=== PATIENT | female | born 1975 | race Caucasian/White ===

== ENCOUNTER → 2023-09-07 14:20 | Outpatient (REF) | payer BC, SELFPAY ==
[2023-09-17 04:08] LABS: HPV Genotype 16 Not Detected; HPV Genotype 18 Not Detected; HPV, High Risk Not Detected; HPV, High Risk Source Cervical
== END ==
LOC: CPAP 14:20
PROVIDERS: ATTENDING PHYSICIAN Obstetrics & Gynecology Gynecology
DX: Z01.419 Encounter for gynecological examination (general) (routine) without abnormal findings (principal)
CPT/HCPCS: 87624; G0123

== ENCOUNTER → 2023-10-03 09:50 | Outpatient (REF) | payer BC, SELFPAY | LOC: MRI 3T 09:50 | PROVIDERS: ATTENDING PHYSICIAN Orthopaedic Surgery Hand Surgery | DX: M77.12 Lateral epicondylitis, left elbow (principal) | CPT/HCPCS: 73221 ==

== ENCOUNTER → 2023-12-29 20:09 | Outpatient (REF) | payer BC, SELFPAY | LOC: MRI 3T 20:09 | PROVIDERS: ATTENDING PHYSICIAN Physical Medicine & Rehabilitation; FAMILY PHYSICIAN Family Medicine | DX: M77.12 Lateral epicondylitis, left elbow (principal) | CPT/HCPCS: 73221 ==

== ENCOUNTER → 2024-01-03 14:41 | Outpatient (REF) | payer BC, SELFPAY | LOC: MRI 3T 14:41 | PROVIDERS: ATTENDING PHYSICIAN Internal Medicine Hematology & Oncology; FAMILY PHYSICIAN Internal Medicine Cardiovascular Disease | DX: C50.912 Malignant neoplasm of unspecified site of left female breast (principal) | CPT/HCPCS: 77049; A9585 ==

== ENCOUNTER 2024-01-19 16:04 | Outpatient (RCR) | payer BC, SELFPAY | END 2024-01-19 23:59 | disposition home or self-care (01) | LOC: ROT 16:04 | PROVIDERS: ATTENDING PHYSICIAN Physical Medicine & Rehabilitation; FAMILY PHYSICIAN Family Medicine | DX: M77.12 Lateral epicondylitis, left elbow (principal); Z73.6 Limitation of activities due to disability; Z85.3 Personal history of malignant neoplasm of breast | CPT/HCPCS: 97010; 97035; 97110; 97140; 97166; 97535 ==

== ENCOUNTER → 2024-03-24 13:15 | Outpatient (REF) | payer BC, SELFPAY | LOC: RAD 13:15 | PROVIDERS: ATTENDING PHYSICIAN Student in an Organized Health Care Education/Training Program; FAMILY PHYSICIAN Family Medicine | DX: M54.2 Cervicalgia (principal) | CPT/HCPCS: 72052 ==

== ENCOUNTER → 2024-03-28 08:00 | Outpatient (REF) | payer BC, SELFPAY | LOC: RAD 08:00 | PROVIDERS: ATTENDING PHYSICIAN Student in an Organized Health Care Education/Training Program | DX: M54.2 Cervicalgia (principal) | CPT/HCPCS: 93880 ==

== ENCOUNTER → 2024-05-13 07:46 | Outpatient (REF) | payer BC, SELFPAY | LOC: MRI 3T 07:46 | PROVIDERS: ATTENDING PHYSICIAN Physician Assistant Surgical; FAMILY PHYSICIAN Family Medicine | DX: M54.12 Radiculopathy, cervical region (principal); M54.2 Cervicalgia; M50.10 Cervical disc disorder with radiculopathy, unspecified cervical region | CPT/HCPCS: 72141 ==

== ENCOUNTER → 2024-08-04 08:34 | Outpatient (REF) | payer BC, SELFPAY ==
[2024-08-04 10:06] LABS: Hematocrit 35.8 % (37.0-47.0); Hemoglobin 11.9 g/dL (12.0-16.0); Mean Corp Hgb Conc. 33.2 g/dL (33.0-37.0); Mean Corpuscular Hgb 31.8 pg (27.0-31.0); Mean Corpuscular Volume 95.7 fL (81.0-99.0); Mean Platelet Volume 10.7 fL (7.4-10.4); Platelet Count 233 10^3/uL (130-400); Red Blood Cell Count 3.74 10^6/uL (4.20-5.40); Red Cell Dist. Width 12.5 % (11.5-14.5); White Blood Cell Count 4.7 10^3/uL (4.8-10.8)
[2024-08-04 11:24] LABS: ALT (SGPT) 27 U/L (0-35); AST (SGOT) 41 U/L (14-36); Albumin 4.9 g/dl (3.5-5.0); Alkaline Phosphatase 61 U/L (38-126); Blood Urea Nitrogen 15 mg/dl (7-17); Carbon Dioxide 28 mmol/L (22-30); Chloride 99 mmol/L (98-107); Glucose 93 mg/dl (70-99); Potassium 4.2 mmol/L (3.5-5.1); Sodium 136 mmol/L (135-145); Total Bilirubin 0.3 mg/dl (0.2-1.3); Total Cholesterol 225 mg/dl (50-199); Total Protein 7.3 g/dl (6.3-8.2); Triglyceride 67 mg/dl (10-149); Very Low Density Lipoprotein 13 mg/dl (0-30); eGFR > 60.00
[2024-08-04 11:48] LABS: HDL Cholesterol 159 mg/dl; LDL Cholesterol, Calculated 53 mg/dl
== END ==
LOC: REG 08:34
PROVIDERS: ATTENDING PHYSICIAN Family Medicine
DX: E03.9 Hypothyroidism, unspecified (principal); Z00.01 Encounter for general adult medical examination with abnormal findings
CPT/HCPCS: 36415; 80053; 80061; 84443; 85027

== ENCOUNTER → 2024-08-10 13:23 | Outpatient (REF) | payer BC, SELFPAY ==
[2024-08-10 15:21] LABS: C-Reactive Protein < 5.00 mg/L (0.0-10.00)
[2024-08-10 15:26] LABS: Erythrocyte Sed Rate 10 mm/hour (0-20)
[2024-08-11 13:03] LABS: Rheumatoid Agglutinin Less Than 10 IU (<10 IU)
[2024-08-13 09:52] LABS: ANA, IgG Reflex to HEp-2 None Detected (None Detected)
== END ==
LOC: REG 13:23
PROVIDERS: ATTENDING PHYSICIAN Family Medicine; FAMILY PHYSICIAN Internal Medicine Cardiovascular Disease
DX: Z85.3 Personal history of malignant neoplasm of breast (principal); Z00.00 Encounter for general adult medical examination without abnormal findings; M47.812 Spondylosis without myelopathy or radiculopathy, cervical region
CPT/HCPCS: 36415; 85652; 86038; 86140; 86430

== ENCOUNTER → 2024-12-04 15:53 | Outpatient (REF) | payer BC, SELFPAY | LOC: RAD 15:53 | PROVIDERS: ATTENDING PHYSICIAN Surgery Plastic and Reconstructive Surgery; FAMILY PHYSICIAN Family Medicine | DX: Z90.13 Acquired absence of bilateral breasts and nipples (principal) | CPT/HCPCS: 74174; Q9967 ==

== ENCOUNTER → 2024-12-14 09:39 | Outpatient (REF) | payer BC, SELFPAY | LOC: WDC 09:39 | PROVIDERS: ATTENDING PHYSICIAN Surgery; FAMILY PHYSICIAN Family Medicine | DX: N63.0 Unspecified lump in unspecified breast (principal); Z85.3 Personal history of malignant neoplasm of breast; C50.412 Malignant neoplasm of upper-outer quadrant of left female breast | CPT/HCPCS: 76642 ==

== ENCOUNTER → 2024-12-15 14:52 | Outpatient (REF) | payer BC, SELFPAY | LOC: RCS 14:52 | PROVIDERS: ATTENDING PHYSICIAN Internal Medicine Cardiovascular Disease; FAMILY PHYSICIAN Family Medicine | DX: R00.2 Palpitations (principal); R94.31 Abnormal electrocardiogram [ECG] [EKG]; R07.89 Other chest pain | CPT/HCPCS: 93017 ==

== ENCOUNTER → 2024-12-21 11:21 | Outpatient (REF) | payer BC, SELFPAY | LOC: HWRCS 11:21 | PROVIDERS: ATTENDING PHYSICIAN Internal Medicine Cardiovascular Disease; FAMILY PHYSICIAN Family Medicine | DX: R00.2 Palpitations (principal); R94.31 Abnormal electrocardiogram [ECG] [EKG] | CPT/HCPCS: 93306 ==

== ENCOUNTER 2025-01-09 06:23 | Inpatient (IN) | payer BC, SELFPAY ==
[2024-12-29 09:26] LABS: Hematocrit 35.5 % (37.0-47.0); Mean Corp Hgb Conc. 33.8 g/dL (33.0-37.0); Mean Corpuscular Hgb 33.1 pg (27.0-31.0); Mean Corpuscular Volume 98.1 fL (81.0-99.0); Mean Platelet Volume 11.5 fL (7.4-10.4); Platelet Count 234 10^3/uL (130-400); Red Blood Cell Count 3.62 10^6/uL (4.20-5.40); White Blood Cell Count 4.7 10^3/uL (4.8-10.8)
[2024-12-29 09:50] LABS: ALT (SGPT) 21 U/L (0-35); AST (SGOT) 32 U/L (14-36); Albumin 4.8 g/dl (3.5-5.0); Alkaline Phosphatase 53 U/L (38-126); Blood Urea Nitrogen 10 mg/dl (7-17); Carbon Dioxide 30 mmol/L (22-30); Chloride 102 mmol/L (98-107); Glucose 84 mg/dl (70-99); Potassium 4.2 mmol/L (3.5-5.1); Sodium 138 mmol/L (135-145); Total Bilirubin 0.6 mg/dl (0.2-1.3); Total Protein 7.5 g/dl (6.3-8.2); eGFR > 60.00
[2024-12-29 12:51] VITALS: BMI 21.6
[2025-01-09] VITALS (23 sets, daily range): BP systolic 78–120; BP diastolic 44–93; BMI 22.3
[2025-01-09] MEDS: LOVENOX 40 MG SC (07:01)
[2025-01-09] MEDS: NORMOSOL-R/PLASMALYTE-A 1000 IV (07:02)
--- NOTE | 2025-01-09 15:26 | OR.RPT ---
Operative Report
Operative Report
Date of Service: 01/09/25
Surgeon: Brock Hull MD
Co-Surgeon: Bessie Montes MD
Assisting Surgeon: Dara Curran MD
Preoperative diagnosis:
1. Personal history of breast cancer
2. 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
3. Animation deformity
Postoperative diagnosis: Same
Procedure:
1. Bilateral removal of silicone breast implants for reconstruction
2. Bilateral partial capsulectomies
3. Bilateral preparation of mastectomy defect for recipient of graft [id number] on each side
4. Bilateral local tissue rearrangements of the bilateral breasts measuring [id number] on each side
5. Bilateral delayed ELLE flap breast reconstruction
6. Right internal mammary lymph node biopsy
7. Application of JEFERSON disposable negative pressure incisional wound VAC.
Anesthesia: General
EBL: 150 cc
Specimens: Per Dr. Curran
Drains: 4 15 [place] Perico drains
Complications: None
Indications: This is a 49-year-old female who has a history of breast cancer and bilateral nipple sparing mastectomies with implant based breast reconstruction. She was unhappy with her implant reconstruction and desired transitioning to autologous
reconstruction. She was referred to me by her primary plastic surgeon, Dr. Montes. I discussed the various options available to her. She was interested in pursuing autologous reconstruction with tissue from her abdomen and she had acceptable donor
site. She understood that she would be smaller breasted after her reconstructions and was amenable to this. She also had animation deformity and submuscular implants and we discussed converting this to a prepectoral reconstruction. Her inframammary
folds were also effaced by her implants and she would require modifications in the form of a local tissue rerarrangement to correct this, and this was discussed with her. Risks of the procedure were discussed including flap failure, return to OR for
arterial or venous thrombosis, wound healing issues, donor site morbidity to the abdomen and VTE.� We reviewed the nature of the procedure and the risk benefits and alternatives at length.� All her questions were answered.� Consent was signed prior
to surgery.
Operative findings:
The patient was brought to the operating room and placed supine on the operating room table. General anesthesia was induced with endotracheal tube.� A Schrader catheter was placed.� Patient was prepped and draped in the standard fashion using
chlorhexidine prep.� A timeout was performed.
Dr. Montes and I started the dissection of the flaps in the abdomen while the breast surgeon was working in the chest to excise some masses in the bilateral breasts.� This involved dissection of the abdominal wall and identification of perforating
vessels into the abdominal flaps bilaterally.� On the patient's right side a 3 patient services assistant ELLE flap was dissected.� This involved little to no muscle to minimize the morbidity to the abdominal wall.� The flap was dissected down to the source vessels
where the inferior epigastrics were coming off of the external iliac.
On the contralateral side another 4 patient services assistant ELLE flap was also dissected.� This similarly involved a tedious dissection where the inferior epigastrics were traced down to their source vessel in a muscle sparing approach.
Once the breast surgeon was done biopsying masses in the breasts, i turned my attention to the chest wall. The silicone implants were removed. The pectoralis muscle was dissected out from the overlying mastectomy skin flap and returned down to its
anatomic position on the chest wall. This was done bilaterally. This was done to prepare the site for recipient of the flap. This measured approximately 15 x 15cm on each side. The inframammary folds were also corrected this was done by performing
bilateral partial capsulectomies and then a George advancement flap of the abdomen was performed and the upper abdominal skin was quilted down to the chest wall to recreate the IMF bilaterally. The total are of local tissue rearrangement measured
[id number] on each side. I then performed the internal mammary vessel dissection. The third rib was resected bilaterally. The internal mammary arteries and veins were identified and carefully circumferentially dissected. Internal mammary lymph nodes
were encountered on the right and these were sent off for pathologic evaluation.
The left flap was harvested from the abdomen and transferred to the right chest wall.� Microvascular anastomosis was then performed to the internal mammary vessels.� This was done using a 3.0 millimeter tax compliance manager for the venous anastomosis.� The
arterial anastomosis was performed using 8-0 nylon suture in the normal standard fashion.
After the microvascular anastomosis was performed there was excellent perfusion of the flap.� This was temporarily inset and attention was turned to the contralateral breast.
The right hemiabdomen was then transferred to the left chest wall.� The identical procedure was then performed from a microvascular perspective.� This side was with a 3.0 mm tax compliance manager for the venous anastomosis and 8-0 nylon suture for the arterial
anastomosis. This flap similarly had excellent perfusion afterwards.
While my co-surgeon Dr. Montes was performing a microvascular anastomosis on the chest wall, I was dissecting the other ELLE flap in the abdomen.� We then switched roles for the contralateral sides.
The abdominal wall was reconstructed using a piece of phasix mesh in an underlay fashion.� The fascia was primarily closed bilaterally. The abdominal wall was then closed in a layered fashion.� This was done after performing a tap block using
marcaine divided evenly amongst the hemiabdomens.� Two 15 [place] Helen[place] perico drains were placed in the abdomen.� These were secured using 2-0 Prolene sutures.� The Jose Antonio's fascia was then reapproximated using 2-0 Vicryl suture.� The skin was then closed
in a layered fashion using insorb dermal miriam and a running Monocryl suture.
Bilateral pec and intercostal blocks were performed with marcaine and a 15 [place] Helen[place] perico drain was placed in each breast pocket.� These were also secured using 2-0 Prolene sutures.�
The breast flaps were then de-epithelialized and inset.�The breast skin was closed in layered fashion using 3-0 and 4-0 Monocryl suture.� All incisions were dressed with Dermabond glue.� Hand-held Doppler signals were found in the reconstructed
breasts and these were marked with a 5-0 Prolene suture. A JEFERSON incisional wound VAC was applied to the abdominal incision.
The patient tolerated the procedure very well.� All counts were correct at the completion of the case.� The patient was then extubated uneventfully and transferred to the ICU in stable condition.
Dr. Saul Montes was my co-surgeon for this case.� His status as a co-surgeon was critical and allowing us to function as two separate teams.� This allowed us to operate simultaneously on both the breasts and on each side of the abdomen.� This
was essential for the appropriate safety and efficiency of this procedure.
Dr. Curran was our gynecological assistant for this case after performing the mastectomies. Her assistance was critical to allow for us to execute the surgery in a safe and timely manner.
--- NOTE | 2025-01-09 15:26 | OR.RPT ---
Operative Report
Operative Report
Date of surgery: 01/09/2025
Pre-op diagnosis: Left breast carcinoma S/P bilateral mastectomies and reconstruction with implants; bilateral abdominal wall hernias
Postop diagnosis:Same
Procedure: Repair of abdominal wall hernias incurred during ELLE flap reconstruction.
Surgeon: Bina
The patient is a 49 Y/O female who previously underwent nipple sparing bilateral mastectomies for the treatment of left breast carcinoma. She underwent immediate
implant based reconstruction, but the patient desired autologous flap reconstruction performed by Drs. Hull and Jyoti. I was present throughout the entire case to assist and perform the
abdominal wall reconstruction as the Plastic Surgeons are not credentialled in General Surgery.
I incised the marked inframammary breast incisions and carried dissection down to the capsules. Implants were removed. There were multiple
subcutaneous masses removed from both breasts all of which were sent for permanent analysis.
After the tissue flaps were harvested, two abdominal wall defects in the anterior abdominal wall had been created both measuring 5 x 15 cm. Two portions of Phasix mesh
cut to the bilateral defect size of 15 x 5 cm were fashioned and placed under the anterior rectus abdominis muscle sheath on each side. The anterior abdominal
wall fascia was reapproximated with interupted figure of eight 0-PDS suture. Then an 0-Stratifix suture was used to oversew the repairs on both sides.
This resulted in low tension on the anterior abdominal wall.
Bilateral TAPS blocks were performed using 30cc of .25% marcaine plain. Drains were passed through the lateral abdominal wall and secured into position with 2-0 prolene.
The remaining soft tissue and skin closure was performed as described in the Plastic Surgical dictation.
([id number])
[2025-01-09 16:02] LABS: Glucose - Point of Care 210 mg/dl (70-99)
--- NOTE | 2025-01-09 16:18 | W.IMMPOSTOP ---
Surgical Immed Post Op Note
-
Primary Surgeon: LU Montes MD
Assisting Surgeon: Brock Hull MD; Dara Curran MD
Pre-op Diagnosis: History of breast cancer, status post bilateral mastectomy
Post-op Diagnosis: Same
Procedure Performed: Removal of bilateral breast implants, bilateral D IEP flap breast reconstruction
Anesthesia Type: General
Specimen / Cultures: Per Dr. Curran
Estimated Blood Loss: 150 cc
Complications: None
Operative Findings: As expected
--- NOTE | 2025-01-09 16:18 | OR.RPT ---
Operative Report
Operative Report
Date of Surgery: 01/09/25
Surgeon: Bessie Montes MD
Co-Surgeon: Brock Hull MD
Assisting Surgeon: Dara Curran MD
Preoperative diagnosis:
1. Personal history of breast cancer
2. 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
3. Animation deformity
Postoperative diagnosis: Same
Procedure:
1. Bilateral removal of silicone breast implants for breast reconstruction
2. Bilateral partial capsulectomies
3. Bilateral preparation of mastectomy defect for recipient of graft [id number] on each side
4. Bilateral local tissue rearrangements of the bilateral breasts measuring [id number] on each side
5. Bilateral delayed ELLE flap breast reconstruction
6. Right internal mammary lymph node biopsy
7. Application of JEFERSON disposable negative pressure incisional wound VAC
Anesthesia: General
EBL: 150 cc
Specimens: Per Dr. Curran
Drains: 4 15 Polish Perico drains
Complications: None
Indications: This is a 49-year-old female who has a history of breast cancer and bilateral nipple sparing mastectomies with implant based breast reconstruction. She was unhappy with her implant reconstruction and desired transitioning to autologous
reconstruction. Given her desire for D IEP flap breast reconstruction, I referred her to Dr. Brock Hull as he would be my co-surgeon for this bilateral procedure. I discussed the various options available to her. She was interested in pursuing
autologous reconstruction with tissue from her abdomen and she had acceptable donor site. She understood that she would be smaller breasted after her reconstructions and was amenable to this. She also had animation deformity and submuscular implants
and we discussed converting this to a prepectoral reconstruction. Her inframammary folds were also effaced by her implants and she would require modifications in the form of a local tissue rearrangement to correct this, and this was discussed with
her. Risks of the procedure were discussed including flap failure, return to OR for arterial or venous thrombosis, wound healing issues, donor site morbidity to the abdomen and VTE.� We reviewed the nature of the procedure and the risk benefits and
alternatives at length.� All her questions were answered.� Consent was signed prior to surgery.
Operative findings:
The patient was brought to the operating room and placed supine on the operating room table. General anesthesia was induced with endotracheal tube.� A Schrader catheter was placed.� Patient was prepped and draped in the standard fashion using
chlorhexidine prep.� A timeout was performed. It was confirmed that preoperative antibiotics were administered as was preoperative Lovenox. Bilateral SCDs were in place.
Dr. Hull and I started the dissection of the flaps in the abdomen while the breast surgeon was working in the chest to excise some masses in the bilateral breasts.� This involved dissection of the abdominal wall and identification of perforating
vessels into the abdominal flaps bilaterally.� On the patient's right side a 3 instructional support specialist ELLE flap was dissected.� This involved little to no muscle to minimize the morbidity to the abdominal wall.� The flap was dissected down to the source vessels
where the inferior epigastrics were coming off of the external iliac.
On the contralateral side another 4 instructional support specialist ELLE flap was also dissected.� This similarly involved a tedious dissection where the inferior epigastrics were traced down to their source vessel in a muscle sparing approach.
Once the breast surgeon was done biopsying masses in the breasts, Dr. Hull turned his attention to the chest wall. The silicone implants were removed. The pectoralis muscle was dissected out from the overlying mastectomy skin flap and returned down
to its anatomic position on the chest wall. This was done bilaterally. This was done to prepare the site as a recipient of the flap. This measured approximately 15 x 15cm on each side. The inframammary folds were also corrected this was done by
performing bilateral partial capsulectomies and then an advancement flap of the abdomen was performed and the upper abdominal skin was quilted down to the chest wall to recreate the IMF bilaterally. The total are of local tissue rearrangement
measured [id number] on each side. Dr. Hull and I then performed the internal mammary vessel dissection bilaterally. The third rib was resected bilaterally. The internal mammary arteries and veins were identified and carefully circumferentially
dissected. Internal mammary lymph nodes were encountered on the right and these were sent off for pathologic evaluation.
The left flap was harvested from the abdomen and transferred to the right chest wall.� Microvascular anastomosis was then performed to the internal mammary vessels.� This was done using a 3.0 millimeter nuclear criticality safety engineer for the venous anastomosis.� The
arterial anastomosis was performed using 8-0 nylon suture in the normal standard fashion.
After the microvascular anastomosis was performed there was excellent perfusion of the flap.� This was temporarily inset and attention was turned to the contralateral breast.
The right hemiabdomen was then transferred to the left chest wall.� The identical procedure was then performed from a microvascular perspective.� This side was with a 3.0 mm nuclear criticality safety engineer for the venous anastomosis and 8-0 nylon suture for the arterial
anastomosis. This flap similarly had excellent perfusion afterwards.
While my co-surgeon Dr. Hull was performing a microvascular anastomosis on the chest wall, I was dissecting the other ELLE flap in the abdomen.� We then switched roles for the contralateral sides.
The abdominal wall was reconstructed using a piece of phasix mesh in an underlay fashion.� The fascia was primarily closed bilaterally. The abdominal wall was then closed in a layered fashion.� This was done after performing a tap block using
marcaine divided evenly amongst the hemiabdomens.� Two 15 Polish perico drains were placed in the abdomen.� These were secured using 2-0 Prolene sutures.� The Jose Antonio's fascia was then reapproximated using 2-0 Vicryl suture.� The skin was then closed
in a layered fashion using insorb dermal miriam and a running Monocryl suture.
Bilateral pec and intercostal blocks were performed with marcaine and a 15 Polish perico drain was placed in each breast pocket.� These were also secured using 2-0 Prolene sutures.�
The breast flaps were then de-epithelialized and inset.�The breast skin was closed in layered fashion using 3-0 and 4-0 Monocryl suture.� Hand-held Doppler signals were found in the reconstructed breasts and these were marked with a 5-0 Prolene
suture. A JEFERSON incisional wound VAC was applied to the abdominal incision.
The patient tolerated the procedure very well.� All counts were correct at the completion of the case.� The patient was then extubated uneventfully and transferred to the ICU in stable condition.
Dr. Brock Hull was my co-surgeon for this case.� His status as a co-surgeon was critical and allowing us to function as two separate teams.� This allowed us to operate simultaneously on both the breasts and on each side of the abdomen.� This was
essential for the appropriate safety and efficiency of this procedure.
Dr. Curran was our assistant manager/embalmer for this case after performing the biopsies. Her assistance was critical to allow for us to execute the surgery in a safe and timely manner.
[2025-01-09] MEDS: VALIUM 5 MG PO ×2 (16:28→22:45)
[2025-01-09] MEDS: ROXICODONE 5 MG PO ×2 (16:28→20:29)
--- NOTE | 2025-01-09 16:43 | PTCARENOTE ---
Pt rec'd into ICU Rm [id number] from OR, handoff from surgical team rec'd, paddle checks completed in tandem with team. Drs. Montes and Bina and OR team in room to assess patient. She is AOx3 and pleasant, RAMIREZ with 6/10 right arm pain...MD aware and
states most likely from positioning/bp cuff. Cuff switched to right arm for comfort. Admission completed, orders reviewed and carried out. PRN Valium and Roxicodone administered per orders. Corby brought into room, plan of care reviewed with
patient and . Safe environment maintained.
[2025-01-09] MEDS: LR 1000 IV ×3 (17:31→22:45)
[2025-01-09] MEDS: TYLENOL 1000 MG PO ×2 (17:47→22:45)
[2025-01-09] MEDS: ANCEF 10 IV (17:47)
[2025-01-09] MEDS: ZOFRAN 4 MG IV (17:50)
--- NOTE | 2025-01-09 18:13 | PTCARENOTE ---
Pt taking break from micah hugger at this time due to hot flashes/nausea, temp sensing llamas showing 97.6 at this time. Pt's other vitals remain stable, room air sat 96%, spot checking 02 at her request. Paddle checks Q1 hours ongoing. Safe
environment maintained. at bedside.
--- NOTE | 2025-01-09 19:24 | PTCARENOTE ---
on assessment pt AAOx3, c/o pain improvement due to pain meds, see KEATON, SR on the monitor, denies chest pain, RA 95%, clear liquid diet, llamas in place, b/l ADELAIDA drains x4 with bloody drainage noted, ABD dressing with JEFERSON blinking orange and C/D/I,
+breast pulses, skin warm and breast remains soft and pale, LR running at 125ml/hr, call burton in reach
[2025-01-09] MEDS: COMPAZINE 10 MG IV (20:34)
[2025-01-09] MEDS: NSS 1000 IV (21:11)
--- NOTE | 2025-01-09 21:14 | PTCARENOTE ---
BP 85/51 (63), LINE CONSTRUCTION ENGINEER made aware and fluid bolus ordered
[2025-01-09] MEDS: NEURONTIN 300 MG PO (22:45)
[2025-01-09 22:49] LABS: Hematocrit 27.7 % (37.0-47.0); Hemoglobin 9.4 g/dL (12.0-16.0)
[2025-01-09 22:52] LABS: APTT 26.3 Sec (23.4-35.0); INR 1.08; PT 14.3 Sec (11.4-14.6)
[2025-01-09 23:03] LABS: Blood Urea Nitrogen 11 mg/dl (7-17); Calcium 7.2 mg/dl (8.4-10.2); Carbon Dioxide 24 mmol/L (22-30); Chloride 107 mmol/L (98-107); Estimated Creatinine Clearance 96 ml/min; Glucose 140 mg/dl (70-99); Phosphorus 3.2 mg/dl (2.5-4.5); Potassium 4.4 mmol/L (3.5-5.1); Sodium 134 mmol/L (135-145); eGFR > 60.00
[2025-01-09] MEDS: CALCIUM GLUCONATE 100 IV (23:15)
--- NOTE | 2025-01-09 23:23 | PTCARENOTE ---
BPs trending lower, systolic in the 80s, PULL OVER MACHINE OPERATOR and surgery MD paged and made aware, pt AAOx3 and asymptomatic but drowsy, p.o pain meds given see MAR, 2L fluid bolus ordered, labs drawn and orders placed, see MAR, call burton in reach
[2025-01-09 23:28] LABS: Albumin 3.4 g/dl (3.5-5.0)
[2025-01-10] VITALS (50 sets, daily range): BP systolic 77–117; BP diastolic 49–95; BMI 24.4
[2025-01-10] MEDS: FLEXBUMIN 100 IV (00:19)
[2025-01-10] MEDS: ANCEF 10 IV ×2 (02:50→09:55)
[2025-01-10 03:13] LABS: % Basophils 0.3 % (0-2); % Immature Granulocytes 0.3 % (0-0.5); % Lymphocytes 12.4 % (20.5-51.1); % Monocytes 7.7 % (1.7-9.3); % Neutrophils 79.3 % (42.2-75.2); Absolute Monocytes 0.6 10^3/uL (0.1-0.6); Absolute Neutrophils 6.1 10^3/uL (1.4-6.5); Hematocrit 25.1 % (37.0-47.0); Hemoglobin 8.5 g/dL (12.0-16.0); Mean Corp Hgb Conc. 33.9 g/dL (33.0-37.0); Mean Corpuscular Hgb 32.9 pg (27.0-31.0); Mean Corpuscular Volume 97.3 fL (81.0-99.0); Mean Platelet Volume 11.2 fL (7.4-10.4); Nucleated Red Blood Cells % 0 %; Platelet Count 142 10^3/uL (130-400); Red Blood Cell Count 2.58 10^6/uL (4.20-5.40); Red Cell Dist. Width 12.5 % (11.5-14.5); White Blood Cell Count 7.7 10^3/uL (4.8-10.8)
[2025-01-10 03:40] LABS: ALT (SGPT) 14 U/L (0-35); AST (SGOT) 32 U/L (14-36); Albumin 3.5 g/dl (3.5-5.0); Alkaline Phosphatase 33 U/L (38-126); Blood Urea Nitrogen 10 mg/dl (7-17); Carbon Dioxide 25 mmol/L (22-30); Chloride 110 mmol/L (98-107); Estimated Creatinine Clearance 96 ml/min; Glucose 105 mg/dl (70-99); Magnesium 2.9 mg/dl (1.6-2.3); Potassium 4.3 mmol/L (3.5-5.1); Sodium 138 mmol/L (135-145); Total Bilirubin 0.5 mg/dl (0.2-1.3); Total Protein 5.3 g/dl (6.3-8.2); eGFR > 60.00
[2025-01-10] MEDS: NSS 1000 IV (04:23)
--- NOTE | 2025-01-10 04:49 | PTCARENOTE ---
pt BP remains low, maps in the low 60s, AFLOAT CRYPTOLOGIC MANAGER made aware, another 1L fluid bolus ordered, see MAR, pt asymptomatic and call burton in reach
--- NOTE | 2025-01-10 05:54 | PTCARENOTE ---
Pt continues with BP low, maps between 60-63, Dr. Montes paged and made aware, pt is asymptomatic, call burton in reach
[2025-01-10] MEDS: SYNTHROID 100 MCG PO (06:21)
[2025-01-10] MEDS: SENOKOT 8.6 MG PO ×2 (07:35→20:58)
[2025-01-10] MEDS: COLACE 100 MG PO ×3 (07:35→21:00)
[2025-01-10] MEDS: TYLENOL 1000 MG PO ×3 (07:35→18:15)
[2025-01-10] MEDS: VALIUM 5 MG PO ×3 (07:35→21:03)
[2025-01-10] MEDS: ZOLOFT 100 MG PO (07:35)
--- NOTE | 2025-01-10 08:28 | CON.INTV ---
Consultation
Consultation Request
Date/Time Consultation Requested: 01/09/2025
Date/Time Consultation Performed: 01/10/2025823
Requesting Provider: Dr. Montes
Performing Provider: Dr. Luna
Reason for Consultation: s/p ELLE
Medical History
-
Chief Complaint: Elective breast implant explantation/ELLE
History of Present Illness:
49-year-old female with a PMHx of hypothyroidism, left-sided breast cancer (invasive ductal carcinoma - diagnosed 2021) s/p bilateral mastectomy (09/2021), spondylolisthesis, personal history of COVID-19 (June 2021), history of insomnia,
hypothyroidism, and mild intermittent asthma who presents for elective breast implant explantation and bilateral deep inferior epigastric diesel bus mechanic (ELLE) flap surgery. Patient is known to breast surgeon, Dr. Curran, with last visit 12/13/2024.
She has a history of left-sided breast invasive ductal carcinoma that is ER/AZ positive, HER2 negative, with stage IA. The patient wants to have her implants removed as they are painful and feels like her body has not accepted them. The risk and
benefits of this breast surgery were discussed and patient agreed to this procedure. On 01/09/2025, the patient underwent bilateral removal of her silicone breast implants for reconstruction, bilateral partial capsulectomies, bilateral local tissue
rearrangement of the bilateral breasts, and bilateral delayed ELLE flap breast reconstruction. There were no immediate complications. EBL was 150 cc. Patient was transferred to the ICU postoperatively and Clod Puller services consulted for
additional management/recommendations.
Patient seen and evaluated this morning. No acute events reported overnight. BP currently 107/76 and heart rate 68. Patient has abdominal pain where the incision was made but otherwise denies chest pain, SOB, DEL VALLE, nausea, fevers or chills.
PMHx: Hypothyroidism, left-sided breast cancer (diagnosed 2021) s/p bilateral mastectomy (09/2021), spondylolisthesis, personal history of COVID-19 (June 2021), history of insomnia, hypothyroidism, mild intermittent asthma
PSHx: Bilateral mastectomy (09/2021), history of bilateral breast reconstruction (12/2019), laminectomy and fusion of L4-5 (12/2022), left breast biopsy with sentinel lymph node mapping (2021)
Past Medical History
Past Medical History: Other (Above as per HPI)
Past Surgical History: Other (Above as per HPI)
Social History
Tobacco: Former Smoker (91-dtne-aspe history, quit 2001)
Alcohol: Occasional (Socially)
Drug: None
Employment: Employed
Family History
Family History: Cancer (Paternal grandmother + paternal aunt: breast cancer; Paternal aunt: pancreatic cancer; sister: lung cancer), Diabetes (Father), Hypertension (Father) and Other (Father + Mother: A-fib; Sibling: MS + mini stroke; Sister:
asthma)
Allergies / Home Medications
Allergies
Allergy/AdvReac Type Severity Reaction Status Date / Time
Penicillins Allergy Nausea / Verified 01/09/25 21:10
Vomiting
pollen extracts Allergy nasal Verified 01/09/25 06:48
congestion
Home Medications
�Medication �Instructions �Recorded �Confirmed �Last Taken �Type
Calcium + D 1 cap PO .3 TIMES A WEEK Supplement 01/02/25 01/09/25 01/01/25 08:00 History
levothyroxine 100 mcg tablet 100 mcg PO DAILY Thyroid 01/02/25 01/09/25 01/02/25 05:15 History
sertraline 100 mg tablet 100 mg PO DAILY Mental 01/02/25 01/09/25 01/09/25 05:15 History
Health/Anxiety
Review of Systems
-
History Source: Patient
All other systems: Negative unless noted
Vitals / Labs / Diagnostic Testing
Vital Signs
Temp Pulse Resp BP Pulse Ox
98.3 F 59 11 84/56 97
01/10/25 09:00 01/10/25 08:00 01/10/25 08:00 01/10/25 08:00 01/10/25 08:04
Lab Data
01/10/25 03:06
01/10/25 03:06
Laboratory Results
01/09/25
22:33
PT 14.3
INR 1.08
APTT 26.3
Diagnostic Testing:
Physical Exam
-
HEENT: Normocephalic and Anicteric
Cardiovascular: S1/S2 and Peripheral Edema (negative)
Respiratory: Clear, Wheeze (negative), Rales (negative), Rhonchi (negative) and Non-Labored Respirations
GI: Soft, Tender (Hypogastric region where abdominal operation took place) and Other (Hypoactive bowel sounds)
Neurology: AO x 3 and Tremors (negative)
Skin: Warm and Dry
General: Respiratory Distress (negative), Comfortable, Chills (negative) and Sweats (negative)
Assessment
-
Assessment: 49-year-old female with a PMHx of hypothyroidism, left-sided breast cancer (invasive ductal carcinoma - diagnosed 2021) s/p bilateral mastectomy (09/2021), spondylolisthesis, personal history of COVID-19 (June 2021), history of
insomnia, hypothyroidism, and mild intermittent asthma who presents for elective breast implant explantation and bilateral deep inferior epigastric diesel bus mechanic (ELLE) flap surgery. Patient is known to breast surgeon, Dr. Curran, with last visit
12/13/2024. She has a history of left-sided breast invasive ductal carcinoma that is ER/AZ positive, HER2 negative, with stage IA. The patient wants to have her implants removed as they are painful and feels like her body has not accepted them.
The risk and benefits of this breast surgery were discussed and patient agreed to this procedure. On 01/09/2025, the patient underwent bilateral removal of her silicone breast implants for reconstruction, bilateral partial capsulectomies, bilateral
local tissue rearrangement of the bilateral breasts, and bilateral delayed ELLE flap breast reconstruction. There were no immediate complications. EBL was 150 cc. Patient was transferred to the ICU postoperatively and Clod Puller services
consulted for additional management/recommendations.
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
Impression:
#Breast cancer with animation deformity s/p silicone breast implant removal with bilateral partial capsulectomies, bilateral delayed ELLE flap breast reconstruction and right internal mammary lymph node biopsy (POD #1)
#Bilateral abdominal wall hernias s/p repair (POD #1)
#Acute anemia due to above in the setting of dilution
#Former tobacco smoker (99-zxcs-nhva history, quit 2001)
#History of invasive ductal carcinoma s/p bilateral mastectomy (09/2021)
#Personal history of COVID-19 (06/22)
#Mild intermittent asthma
#History of insomnia
Plan:
- Postoperative management as per breast surgeon, Dr. Curran, and plastic surgery
- Continue flap checks q1hr
- Continue abdominal binder
- Pain control
- Up OOB as tolerated
- Encourage incentive spirometer q1hr while awake
- Maintain SpO2 >90-94%
- Maintain MAP>65
- Replete electrolytes with K>4, Mg>2
- Maintain euglycemia with goal BG 140-180
- Trend H/H and transfuse if needed to keep Hb>7g/dL; keep plt>20k, unless there is concern for bleeding then keep plt>50k
- prn nebulized bronchodilators - not currently bronchospastic
- DVT ppx: LMWH
Critical care statement: A total of 37 minutes of critical care time was provided for this patient today. This includes management of unstable vital signs, evaluation of the patient at bedside, reviewing the patient's pertinent medical records
including radiographs, microbiology, laboratory evaluations, and discussion with primary team, consultants, pharmacy, nutrition, physical therapy, case management, charge nurse, critical care nursing, and respiratory therapy.
--- NOTE | 2025-01-10 08:44 | PTCARENOTE ---
Rec'd care of patient at 0700. Handoff breast flap assessment completed with previous RN. B/l breast soft, pink, warm. Good doppler signals. Patient alert and oriented. MAEx4. SB/NSR on tele, rate in the 50-60's. No edema. Palpable pulses. Lung
sounds cta on RA. Pulse ox 96-97%. +BS. No BM. Patient tolerating clears overnight. Schrader in place. Output 100-200 cc/hr. IVFs infusing through RFA INT. Dr. Montes aware of low bp overnight and drop in Hgb. Per Dr Montes, hold of on blood
transfusion and recheck Hgb in afternoon.
[2025-01-10] MEDS: ROXICODONE 5 MG PO ×3 (09:14→19:21)
--- NOTE | 2025-01-10 10:00 | W.PN.PLAS ---
Today's Communication
-
Free flap protocol postop day 1
Progress Note
Subjective Data
Doing well, denies shortness of breath
Some neuropathic pain, intermittent
Objective Data
Vital Signs
Temp Pulse Resp BP Pulse Ox
97.6 F 70 19 104/64 98
01/10/25 11:08 01/10/25 13:00 01/10/25 13:00 01/10/25 13:00 01/10/25 09:08
Intake and Output
01/09/25 01/10/25 01/11/25
06:59 06:59 06:59
Intake Total 4060 / 4185 980 / 980
Output Total 2105 / 2305 865 / 865
Balance 1954 / 1879 115 / 115
Intake:
Oral fluids 210 / 210 480 / 480
IV fluids (Total) 1750 / 1875 500 / 500
Lr 1,000 ml @ 125 mls/hr IV . 1750 / 1875 500 / 500
Q8H YANIV Rx#:[id number]
IV piggybacks 2099 / 2099
Output:
Drain Output (Total) 270 / 270 180 / 180
Left Lower Kit-Aguilar 30 / 30 20 / 20
Left Upper Kit-Aguilar 80 / 80 50 / 50
Right Lower Kit-Aguilar 80 / 80 40 / 40
Right Upper Kit-Aguilar 80 / 80 70 / 70
Urine, Schrader 1834 685 / 685
Other:
Number of approximated MODERATE 1
amounts of urine
PEx:
No acute distress
No increased work of breathing
Bilateral breast flaps with Doppler signals intact
No evidence of venous congestion
Expected ecchymoses
ADELAIDA drains serosanguineous with appropriate output
Abdominal VAC dressing in place
Lab Results
01/10/25 11:06
01/10/25 03:06
Assessment / Plan
Status post bilateral removal of breast implants for reconstruction, bilateral delayed ELLE flap breast reconstruction
Out of bed to chair
Schrader out
Regular diet
Lov[place]orey, SCDs
[2025-01-10] MEDS: LR IV (11:08)
--- NOTE | 2025-01-10 11:08 | PTCARENOTE ---
Schrader removed. DTV by 1600. Assisted oob to chair at 1020. Patient c/o burning pain in right thigh. Dr. Montes at bedside. IVFs capped. Repeat H&H sent.
[2025-01-10 11:12] LABS: Hemoglobin 9.3 g/dL (12.0-16.0); Mean Corp Hgb Conc. 33.2 g/dL (33.0-37.0); Mean Corpuscular Hgb 33.5 pg (27.0-31.0); Mean Corpuscular Volume 100.7 fL (81.0-99.0); Mean Platelet Volume 11.4 fL (7.4-10.4); Platelet Count 161 10^3/uL (130-400); Red Blood Cell Count 2.78 10^6/uL (4.20-5.40); Red Cell Dist. Width 12.5 % (11.5-14.5)
--- NOTE | 2025-01-10 12:07 | PTCARENOTE ---
No major changes in assessment. Patient resting comfortably in chair. NSR on tele. VSS. BP improved; 100-110/60-70's.
--- NOTE | 2025-01-10 12:10 | CM ---
Initial assessment completed with patient with sister in room. Patient lives with her and 2 children (19-22 Y/O) in a 2 story home plus basement with B/B on 1st, 3 steps to enter. 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
or in-home services. works for [employer]. Does have HC-POA. No service. Support system is , children and family. PCP is Dr. Pavel Zhang and Pharmacy is [facility] in [place]. Discharge POC: Home with RN. Referral to [employer].
--- NOTE | 2025-01-10 12:27 | PTCARENOTE ---
Patient ambulatory to bathroom with standby assistance to void.
[2025-01-10] MEDS: NEURONTIN 300 MG PO ×2 (15:54→21:03)
--- NOTE | 2025-01-10 16:10 | PN.CDI ---
CDI
- -
CDI:
Physician Documentation Request
Admit Date: 01/09/25 06:23
Dear Doctor,
Please review the following and provide your response in the progress notes.
Clinical Indicators:
Pt admitted with History of breast cancer/ Removal of bilateral breast implants, bilateral D IEP flap breast reconstruction on 01/09
ESBL 150 Ml
Pt care note 12/31 @ 0449,' pt BP remains low, maps in the low 60s, ELECTRICIAN CRANE MAINTENANCE made aware, another 1L fluid bolus ordered...'
Trended Hemoglobin/Hematocrits below
12/29/24 01/09/25 01/10/25
08:42 22:33 03:06
Hgb 12.0 9.4 L 8.5 L
Hct 35.5 L 27.7 L 25.1 L
Please provide a diagnosis for the above laboratory findings:
Acute blood loss anemia
Abnormal lab value only
Other ( please specify)
Use of terms such as suspected, likely, concern for, or probable (associated with a specific diagnosis that is being evaluated, monitored, or treated as if it exists) are acceptable and can be coded in the inpatient setting, when documented at the
time of discharge.
Thank you,
Caitlin Madsen RN
CDI Specialist
[place] [facility]
Please use your independent medical judgment in providing your response.
--- NOTE | 2025-01-10 16:59 | PTCARENOTE ---
No major changes in assessment. B/l breast flap assessments unchanged. Patient tolerated 4.5 hours oob in chair. VSS. Appetite improved.
[2025-01-10] MEDS: LOVENOX 40 MG SC (18:14)
--- NOTE | 2025-01-10 20:00 | PTCARENOTE ---
on assessment pt AAOx3, c/o ABD pain PRN meds given see KEATON, SB on the monitor, RA, no BM, voids in BR, ambulated with standby assist, ABD dressing with JEFERSON C/D/I and flashing orange, ADELAIDA drains x4 draining serosanguineous, call burton in reach
[2025-01-11] VITALS (35 sets, daily range): BP systolic 87–133; BP diastolic 43–87; BMI 24.0
[2025-01-11] MEDS: TYLENOL 1000 MG PO ×4 (00:20→18:32)
--- NOTE | 2025-01-11 00:51 | PTCARENOTE ---
no changes from prior assessment, pt appears to be resting comfortably in bed, call burton in reach
[2025-01-11 04:06] LABS: Hematocrit 26.5 % (37.0-47.0); Hemoglobin 8.9 g/dL (12.0-16.0); Mean Corp Hgb Conc. 33.6 g/dL (33.0-37.0); Mean Corpuscular Hgb 33.8 pg (27.0-31.0); Mean Corpuscular Volume 100.8 fL (81.0-99.0); Mean Platelet Volume 11.6 fL (7.4-10.4); Platelet Count 159 10^3/uL (130-400); Red Blood Cell Count 2.63 10^6/uL (4.20-5.40); Red Cell Dist. Width 12.5 % (11.5-14.5); White Blood Cell Count 6.2 10^3/uL (4.8-10.8)
[2025-01-11 04:41] LABS: Blood Urea Nitrogen 10 mg/dl (7-17); Calcium 8.6 mg/dl (8.4-10.2); Carbon Dioxide 28 mmol/L (22-30); Chloride 111 mmol/L (98-107); Estimated Creatinine Clearance 96 ml/min; Glucose 90 mg/dl (70-99); Potassium 4.8 mmol/L (3.5-5.1); Sodium 140 mmol/L (135-145); eGFR > 60.00
[2025-01-11] MEDS: SYNTHROID 100 MCG PO (05:03)
[2025-01-11] MEDS: ROXICODONE 5 MG PO ×3 (05:03→18:32)
--- NOTE | 2025-01-11 05:30 | PTCARENOTE ---
pt ambulated to BR with standby assist, call burton in reach
--- NOTE | 2025-01-11 08:07 | W.PN.INTV ---
Addendum entered and electronically signed by Jean Paul Luna MD 01/11/25 16:13:
CDI Inquiry Response: Acute blood loss anemia and dilutional anemia
Original Note:
Today's Communication / Plan
Recommendations
Up OOB as tolerated
Pain control
Monitor bowel movements and continue sennokot and colace
Encouraged IS use q1hr while awake
q1hr flap checks
Post-operative management per breast and plastic surgery
Continue ICU level of care
Assessment
-
Assessment: 49-year-old female with a PMHx of hypothyroidism, left-sided breast cancer (invasive ductal carcinoma - diagnosed 2021) s/p bilateral mastectomy (09/2021), spondylolisthesis, personal history of COVID-19 (June 2021), history of
insomnia, hypothyroidism, and mild intermittent asthma who presents for elective breast implant explantation and bilateral deep inferior epigastric hospital mortician (ELLE) flap surgery. Patient is known to breast surgeon, Dr. Curran, with last visit
12/13/2024. She has a history of left-sided breast invasive ductal carcinoma that is ER/AZ positive, HER2 negative, with stage IA. The patient wants to have her implants removed as they are painful and feels like her body has not accepted them.
The risk and benefits of this breast surgery were discussed and patient agreed to this procedure. On 01/09/2025, the patient underwent bilateral removal of her silicone breast implants for reconstruction, bilateral partial capsulectomies, bilateral
local tissue rearrangement of the bilateral breasts, and bilateral delayed ELLE flap breast reconstruction. There were no immediate complications. EBL was 150 cc. Patient was transferred to the ICU postoperatively and Leasing Assistant services
consulted for additional management/recommendations.
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
Impression:
#Breast cancer with animation deformity s/p silicone breast implant removal with bilateral partial capsulectomies, bilateral delayed ELLE flap breast reconstruction and right internal mammary lymph node biopsy (POD #2)
#Bilateral abdominal wall hernias s/p repair (POD #2)
#Acute anemia due to above in the setting of dilution
#Former tobacco smoker (84-jcwz-wbet history, quit 2001)
#History of invasive ductal carcinoma s/p bilateral mastectomy (09/2021)
#Personal history of COVID-19 (06/22)
#Mild intermittent asthma
#History of insomnia
Plan:
- Postoperative management as per breast surgeon, Dr. Curran, and plastic surgery
- Continue flap checks q1hr until she is 48 hrs post-op, then will reduce to q4hr
- Continue abdominal binder
- Pain control with bowel regimen to avoid opioid induced constipation
- Up OOB as tolerated
- Encourage incentive spirometer q1hr while awake
- Maintain SpO2 >90-94%
- Maintain MAP>65
- Replete electrolytes with K>4, Mg>2
- Maintain euglycemia with goal BG 140-180
- Trend H/H and transfuse if needed to keep Hb>7g/dL; keep plt>20k, unless there is concern for bleeding then keep plt>50k
- prn nebulized bronchodilators - not currently bronchospastic
- DVT ppx: LMWH
Continue ICU level of care who continues to require q1hr flap checks until 48 hrs post-op status.
Critical care statement: A total of 39 minutes of critical care time was provided for this patient today. This includes management of unstable vital signs, evaluation of the patient at bedside, reviewing the patient's pertinent medical records
including radiographs, microbiology, laboratory evaluations, and discussion with primary team, consultants, pharmacy, nutrition, physical therapy, case management, charge nurse, critical care nursing, and respiratory therapy.
Subjective Dataa
Subjective Data
Date of Service:
Date of Service: January 11, 2025
Chief Complaint: Leasing Assistant Follow Up
Subjective:
Patient was seen and evaluated this morning. Worked with physical therapy and did well with no shortness of breath or chest pain. No acute events reported overnight. Heart rate 56, and breathing comfortably on room air. She continues to have
lower abdominal discomfort and also having pain in her right lower extremity since yesterday. Denies right lower extremity numbness/tingling, denies DEL VALLE, chest pain, SOB, fevers or chills
Review of Systems
General: Other (Negative unless mentioned above)
Objective Data
Data Reviewed
Vital Signs / I&O / Oxygen:
Vital Signs
Temp Pulse Resp BP Pulse Ox
98.6 F 72 20 112/74 95
01/11/25 07:39 01/11/25 09:30 01/11/25 09:30 01/11/25 09:30 01/10/25 22:32
Intake and Output
01/10/25 01/11/25 01/12/25
06:59 06:59 06:59
Intake Total 4060 / 4185 980 / 980
Output Total 2105 / 2305 1075 / 1075
Balance 195 / 0 -95 / -95
SaO2 95
Physical Exam
General: Respiratory Distress (negative), Pain (lower abdomen and RL), Chills (negative) and Sweats (negative)
HEENT: Normocephalic and Anicteric
Cardiovascular: S1-S2, Peripheral Edema (negative) and Other (bradycardic)
Respiratory: Clear, Wheeze (negative), Crackles (negative), Rhonchi (negative) and Non-Labored Respirations
GI: Soft, Non Distended, Tender (hypogastrium/periumbilical region) and Normal Bowel Sounds
Neurology: AO x 3 and Tremors (negative)
Skin: Warm, Dry, Cyanosis (negative) and Jaundice (negative)
Labs/Micro/Reports
Lab Data
01/11/25 03:53
01/11/25 03:54
[2025-01-11] MEDS: SENOKOT 8.6 MG PO ×2 (08:44→21:06)
[2025-01-11] MEDS: VALIUM 5 MG PO ×3 (08:44→21:06)
[2025-01-11] MEDS: NEURONTIN 300 MG PO ×3 (08:44→21:06)
[2025-01-11] MEDS: COLACE 100 MG PO ×3 (08:44→21:06)
[2025-01-11] MEDS: ZOLOFT 100 MG PO (08:44)
--- NOTE | 2025-01-11 08:45 | PTCARENOTE ---
Rec'd care of patient at 0700. B/l breast flap assessment completed with previous RN. WNL, see worklist. Patient alert and oriented. SB/NSR on tele. Rate in the 50-60's. No edema. Palpable pulses. Pulse ox 97% on RA. Lung sounds diminished in b/l
base. IS encouraged. Patient demonstrating correct technique. +BS. Appetite improved. No BM. Voiding in bathroom. Peripheral sites capped. VSS. OOB to chair at 0830.
--- NOTE | 2025-01-11 10:21 | PTCARENOTE ---
Patient ambulatory in [place] with PT.
--- NOTE | 2025-01-11 12:00 | PTCARENOTE ---
No changes in assessment. Patient remains oob in chair. Ambulatory in room to and from bathroom. VSS. Pain controlled with PRN Sarah.
--- NOTE | 2025-01-11 12:13 | VNURNOTE ---
Home Health Liaison met with patient at bedside to discuss [facility] nurse/therapy, visits, schedule. 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 Patient is agreeable and understands that visits at home will be 2-3 x per week to assess and teach
medical management.
Patient is aware that [facility] will contact them for start of care in 1-2 days after discharge from . She has had ADELAIDA drains in the past.
[facility] referral accepted in [facility] Port.
--- NOTE | 2025-01-11 14:09 | CM ---
Discharge POC: Home with [facility] RN for drain care.
--- NOTE | 2025-01-11 15:33 | PN.CDI ---
CDI
- -
CDI:
Physician Documentation Request
Admit Date: 01/09/25 06:23
Dear Doctor,
Please review the following and provide your response in the progress notes.
Clinical Indicators:
Pt admitted with History of breast cancer/ Removal of bilateral breast implants, bilateral D IEP flap breast reconstruction on 01/09
ESBL 150 Ml
Pt care note 12/31 @ 0449,' pt BP remains low, maps in the low 60s, VICE PRESIDENT FINANCIAL made aware, another 1L fluid bolus ordered...'
Welt Stitcher note 01/11,' #Acute anemia due to above in the setting of dilution... Trend H/H and transfuse if needed to keep Hb>7g/dL; keep plt>20k, unless there is concern for bleeding then keep plt>50k..'
Trended Hemoglobin/Hematocrits below
12/29/24 01/09/25 01/10/25
08:42 22:33 03:06
Hgb 12.0 9.4 L 8.5 L
Hct 35.5 L 27.7 L 25.1 L
01/10/25 01/11/25
11:06 03:53
Hgb 9.3 L 8.9 L
Hct 28.0 L 26.5 L
Based on the above, could you clarify, in your progress note, which of the following is the most likely type of anemia you are evaluating, monitoring and/or treating?
Acute blood loss anemia and dilutional anemia
Acute Blood loss Anemia
Other ( please specify)
Use of terms such as suspected, likely, concern for, or probable (associated with a specific diagnosis that is being evaluated, monitored, or treated as if it exists) are acceptable and can be coded in the inpatient setting, when documented at the
time of discharge.
Thank you,
Caitlin Madsen RN
CDI Specialist
[place] Text
Please use your independent medical judgment in providing your response.
--- NOTE | 2025-01-11 15:33 | W.PN.PLAS ---
Today's Communication
-
POD 2 protocol
Home tomorrow
Progress Note
Subjective Data
Doing well, denies SOB
Objective Data
Vital Signs
Temp Pulse Resp BP Pulse Ox
97.9 F 62 17 104/79 97
01/11/25 15:00 01/11/25 15:00 01/11/25 15:00 01/11/25 15:00 01/11/25 08:00
Intake and Output
01/10/25 01/11/25 01/12/25
06:59 06:59 06:59
Intake Total 4060 / 4185 980 / 980 240 / 240
Output Total 2105 / 2305 1075 / 1075 105 / 105
Balance 195 / 1879 -95 / -95 135 / 135
Intake:
Oral fluids 210 / 210 480 / 480 240 / 240
IV fluids (Total) 1750 / 1875 500 / 500
Lr 1,000 ml @ 125 mls/hr IV . 1750 / 1875 500 / 500
Q8H YANIV Rx#:[id number]
IV piggybacks 2099 / 2099
Output:
Drain Output (Total) 270 / 270 390 / 390 105 / 105
Left Lower Kit-Aguilar 30 / 30 55 / 55 15 / 15
Left Upper Kit-Aguilar 80 / 80 100 / 100 30 / 30
Right Lower Kit-Aguilar 80 / 80 85 / 85 20 / 20
Right Upper Kit-Aguilar 80 / 80 150 / 150 40 / 40
Urine, Schrader 183 / 2034 685 / 685
Other:
Number of approximated MODERATE 1 1
amounts of urine
PEx:
No acute distress
No increased work of breathing
Bilateral breast flaps with Doppler signals intact
No evidence of venous congestion
Expected ecchymoses
ADELAIDA drains serosanguineous with appropriate output
Abdominal VAC dressing in place
Lab Results
06/12/25 03:53
01/11/25 03:54
Assessment / Plan
Status post bilateral removal of breast implants for reconstruction, bilateral delayed ELLE flap breast reconstruction
Expected dilutional, post surgical anemia
Out of bed to ambulate
Regular diet
Lovenox, SCDs
--- NOTE | 2025-01-11 16:00 | PTCARENOTE ---
No changes in assessment. VSS.
[2025-01-11] MEDS: LOVENOX 40 MG SC (18:10)
--- NOTE | 2025-01-11 20:16 | PTCARENOTE ---
on assessment pt AAOx3, c/o ABD pain PRN meds given see KEATON, SR on the monitor, RA, no BM, voids in BR, ambulated with standby assist, ABD dressing with JEFERSON C/D/I and flashing orange, ADELAIDA drains x4 draining serosanguineous/serous, call burton in reach
[2025-01-12] VITALS (8 sets, daily range): BP systolic 91–122; BP diastolic 62–83
[2025-01-12] MEDS: TYLENOL 1000 MG PO ×2 (00:29→06:05)
--- NOTE | 2025-01-12 04:37 | PTCARENOTE ---
no changes from prior assessment, call burton in reach
[2025-01-12] MEDS: SYNTHROID 100 MCG PO (06:05)
[2025-01-12] MEDS: ROXICODONE 5 MG PO ×2 (06:09→10:00)
--- NOTE | 2025-01-12 07:10 | PTCARENOTE ---
Received pt awake and alert. Handoff paddle checks as documented in work list. Incision on bilateral breasts, PETRA, approximated ans scabbed. Abdominal incision covered with PICOT dressing with appropriate suction as indicated on pump. Dressing CDI.
Right and Left breast and abdominal drains intact to bulb suctioned. Pt verbalized she is familiar with care of her drains from her prior surgery. She demonstrated proper emptying and stripping of her drains. She has them tucked into a drain 'lg
Pack like' rascon. Drain sites PETRA. Lungs CTA. Encouraged she continue to the incentive spirometer even after discharge especially if she is still taking analgesics and wearing the abdominal binder. Lungs CTA, dim in the bases. +BSX4. C/O
constipation, she was instructed to take Miralax as soon as she gets home. SHe verbalized her understanding. Reviewed showering and care of her incisions. Reviewed s/s of infection that would require a phone call to Dr. Montes ie; redness, pain,
swelling, drainage, green, yellow, brown in color, fever, chills, drainage from her drains become cloudy or foul smelling, or if the bulb on her drains do not remain collapsed & providing suction. Safe environment maintained. All questions answered.
--- NOTE | 2025-01-12 08:24 | W.PN.INTV ---
Today's Communication / Plan
Recommendations
Up OOB as tolerated
Pain control
Monitor bowel movements and continue sennokot and colace
Encouraged IS use q1hr while awake
q4hr flap checks
Post-operative management per breast and plastic surgery
Patient is being prepared for discharge home today. No additional recommendations at this time. Hand Sewer/Pulmonary service will now sign off. Please reconsult if there are any additional questions/concerns, or if patient's respiratory status
deteriorates.
Assessment
-
Assessment: 49-year-old female with a PMHx of hypothyroidism, left-sided breast cancer (invasive ductal carcinoma - diagnosed 2021) s/p bilateral mastectomy (09/2021), spondylolisthesis, personal history of COVID-19 (June 2021), history of
insomnia, hypothyroidism, and mild intermittent asthma who presents for elective breast implant explantation and bilateral deep inferior epigastric chair installer (ELLE) flap surgery. Patient is known to breast surgeon, Dr. Curran, with last visit
12/13/2024. She has a history of left-sided breast invasive ductal carcinoma that is ER/UT positive, HER2 negative, with stage IA. The patient wants to have her implants removed as they are painful and feels like her body has not accepted them.
The risk and benefits of this breast surgery were discussed and patient agreed to this procedure. On 01/09/2025, the patient underwent bilateral removal of her silicone breast implants for reconstruction, bilateral partial capsulectomies, bilateral
local tissue rearrangement of the bilateral breasts, and bilateral delayed ELLE flap breast reconstruction. There were no immediate complications. EBL was 150 cc. Patient was transferred to the ICU postoperatively and Hand Sewer services
consulted for additional management/recommendations.
Chronic conditions [employer]: Hypothyroidism, left-sided breast cancer (diagnosed 2021) s/p bilateral mastectomy (09/2021), spondylolisthesis, personal history of COVID-19 (June 2021), history of insomnia, hypothyroidism, mild intermittent asthma
Impression:
#Breast cancer with animation deformity s/p silicone breast implant removal with bilateral partial capsulectomies, bilateral delayed ELLE flap breast reconstruction and right internal mammary lymph node biopsy (POD #3)
#Bilateral abdominal wall hernias s/p repair (POD #3)
#Acute anemia due to above in the setting of dilution
#Former tobacco smoker ([id number] history, quit 2001)
#History of invasive ductal carcinoma s/p bilateral mastectomy (09/2021)
#Personal history of COVID-19 (06/22)
#Mild intermittent asthma
#History of insomnia
Plan:
- Postoperative management as per breast surgeon, Dr. Curran, and plastic surgery
- Continue flap checks q4hr
- Continue abdominal binder
- Pain control with bowel regimen to avoid opioid induced constipation
- Up OOB as tolerated
- Encourage incentive spirometer q1hr while awake
- Maintain SpO2 >90-94%
- Maintain MAP>65
- Replete electrolytes with K>4, Mg>2
- Maintain euglycemia with goal BG 140-180
- Trend H/H and transfuse if needed to keep Hb>7g/dL; keep plt>20k, unless there is concern for bleeding then keep plt>50k
- prn nebulized bronchodilators - not currently bronchospastic
- DVT ppx: LMWH
Patient is being prepared for discharge home today. No additional recommendations at this time. Hand Sewer/Pulmonary service will now sign off. Thank you for allowing us to be involved in the care of this patient. Please reconsult if there are
any additional questions/concerns, or if patient's respiratory status deteriorates.
Total time spent today was 43 minutes for this encounter. Time includes reviewing laboratory test/imaging results, reviewing pertinent medical records, obtaining and reviewing medical history, performing an appropriate exam, ordering medications,
tests and procedures. Time also includes documentation of this encounter, coordinating patient care and communicating with other healthcare professionals. Total time does not include separately billed tests performed on this date of service.
Subjective Dataa
Subjective Data
Date of Service:
Date of Service: January 12, 2025
Chief Complaint: Hand Sewer Follow Up
Subjective:
Patient seen and evaluated this morning. Denies shortness of breath. Still having some abdominal discomfort but it is improved. She denies DEL VALLE, nausea, vomiting, fevers or chills.
Review of Systems
General: Other (Negative unless mentioned above)
Objective Data
Data Reviewed
Vital Signs / I&O / Oxygen:
Vital Signs
Temp Pulse Resp BP Pulse Ox
98.5 F 60 15 122/74 95
01/12/25 04:47 01/12/25 06:00 01/12/25 06:00 01/12/25 06:00 01/12/25 04:40
Intake and Output
01/11/25 01/12/25 01/13/25
06:59 06:59 06:59
Intake Total 980 / 980 240 / 240
Output Total 1075 / 1075 260 / 260
Balance -95 / -95 -20 / -20
SaO2 95
Physical Exam
General: Respiratory Distress (negative), Pain (lower abdomen and RLE), Chills (negative) and Sweats (negative)
HEENT: Normocephalic and Anicteric
Cardiovascular: S1-S2, Peripheral Edema (negative) and Other (bradycardic)
Respiratory: Clear, Wheeze (negative), Crackles (negative), Rhonchi (negative) and Non-Labored Respirations
GI: Soft, Non Distended, Tender (hypogastrium/periumbilical region) and Normal Bowel Sounds
Neurology: AO x 3 and Tremors (negative)
Skin: Warm, Dry, Cyanosis (negative) and Jaundice (negative)
Labs/Micro/Reports
Lab Data
01/11/25 03:53
01/11/25 03:54
[2025-01-12] MEDS: ZOLOFT 100 MG PO (09:47)
[2025-01-12] MEDS: COLACE 100 MG PO (09:47)
[2025-01-12] MEDS: VALIUM 5 MG PO (09:48)
[2025-01-12] MEDS: NEURONTIN 300 MG PO (09:48)
[2025-01-12] MEDS: SENOKOT 8.6 MG PO (09:48)
--- NOTE | 2025-01-12 10:43 | W.PN.PLAS ---
Today's Communication
-
Discahrge to home
Progress Note
Subjective Data
Doing very well
Denies SOB
Subjective: Tolerating Regular Diet and Ambulatory
Objective Data
Vital Signs
Temp Pulse Resp BP Pulse Ox
98.5 F 60 15 122/74 95
01/12/25 04:47 01/12/25 06:00 01/12/25 06:00 01/12/25 06:00 01/12/25 04:40
Intake and Output
01/11/25 01/12/25 01/13/25
06:59 06:59 06:59
Intake Total 980 / 980 240 / 240 360 / 360
Output Total 1075 / 1075 260 / 260 78 / 78
Balance -95 / -95 -20 / -20 282 / 282
Intake:
Oral fluids 480 / 480 240 / 240 360 / 360
IV fluids (Total) 500 / 500
Lr 1,000 ml @ 125 mls/hr IV . 500 / 500
Q8H YANIV Rx#:[id number]
Output:
Drain Output (Total) 390 / 390 260 / 260 78 / 78
Left Lower Kit-Aguilar 55 / 55 35 / 35 30 / 30
Left Upper Kit-Aguilar 100 / 100 60 / 60 20 / 20
Right Lower Kit-Aguilar 85 / 85 65 / 65
Right Upper Kit-Aguilar 150 / 150 100 / 100 28 / 28
Urine, Schrader 685 / 685
Other:
Number of approximated MODERATE 1 1 2
amounts of urine
PEx:
No acute distress
No increased work of breathing
Bilateral breast flaps with Doppler signals intact
No evidence of venous congestion
Expected ecchymoses
ADELAIDA drains serosanguineous with appropriate output
Abdominal VAC dressing in place
Lab Results
01/11/25 03:53
01/11/25 03:54
Assessment / Plan
Status post bilateral removal of breast implants for reconstruction, bilateral delayed ELLE flap breast reconstruction
Expected dilutional, post surgical anemia
Discharge to home on lovenox x 7 days, ASA thereafter
Removed one drain
Removed VAC
--- NOTE | 2025-01-12 10:43 | W.DCSUMMARY ---
Discharge Summary
Discharge Data
Date of Admission: 01/09/25
Date of Discharge: 01/12/25
-
Pending Results: No
Hospital Course
Routine postop course. Admitting for flap monitoring q1h after ELLE flap surgery. Discharged post op day 3 with close surgical follow up and VN.
Discharge Plan
-
Patient Disposition: Home (Routine Discharge)
Discharge Diagnosis/Procedures: s/p ELLE flap surgery
Condition: Good
Diet: Regular
Activity: No strenuous activity
Additional Activity: No heavy lifting >10 lbs x 2 weeks
Driving Restrictions: Not until seen by your Dr
Bathing Restrictions: OK to Shower
Wound Care: ABD pads as needed, compression garment. Strip and record drain output twice daily
Referrals:
Pavel Zhang MD [Family Provider, Family Practice]
Cheikh Cazares MD [Active, Pulmonary Medicine] - 04/10/25 4:00 pm
Prescriptions:
New
docusate sodium 100 mg Capsule
100 mg PO TID Qty: 90 0RF
acetaminophen [Tylenol Extra Strength] 500 mg Tablet
1,000 mg PO Q6 30 Days Qty: 240 0RF
gabapentin 300 mg Capsule
300 mg PO TID 90 Days Qty: 270 3RF
diazepam 5 mg Tablet
5 mg PO TID 14 Days Qty: 42 0RF
oxycodone 5 mg Tablet
5 mg PO Q4HPRN PRN (Reason: breakthrough severe pain) 7 Days Qty: 15 0RF
enoxaparin 40 mg/0.4 mL Syringe
40 mg SC QPM 7 Days Qty: 2.8 0RF
Continued
sertraline 100 mg Tablet
100 mg PO DAILY
levothyroxine 100 mcg Tablet
100 mcg PO DAILY
Calcium + D
1 cap PO .3 TIMES A WEEK
Discharge Orders:
Discharge Patient (As Directed); Ordered 01/12/25
Ordered By: Kavin Montes
Discharge Date and Time
Print Language: ITALIAN
--- NOTE | 2025-01-12 11:10 | PTCARENOTE ---
Reinforced all instructions from this morning regarding drain management, showering, wound/incisional care & s/s of infection, and other reportable occurrences such as unrelieved pain, bulb will not remain collapsed to suction. She was encouraged
NOT to overdo it and to take the pain medications as prescribed, and to take Oxy with food to prevent upset stomach. They verbalized their understanding.
--- NOTE | 2025-01-12 11:58 | CM ---
Patient has been medically cleared for discharge to home with RIVERA MERCER RN. Patient arranged for transport home.
== END 2025-01-12 11:45 | disposition home health service (06) | DRG 580 ==
LOC: ICU 06:23
PROVIDERS: Nurse Practitioner Family; Surgery; ADMITTING PHYSICIAN Surgery Plastic and Reconstructive Surgery; CONSULT PHYSICIAN Internal Medicine Critical Care Medicine; FAMILY PHYSICIAN Family Medicine
PROC: 0HRV077 Replacement of Bilateral Breast using Deep Inferior Epigastric Artery Perforator Flap, Open Approach (ICD-10-PCS; 2025-01-09)
PROC: 0HPT0JZ Removal of Synthetic Substitute from Right Breast, Open Approach (ICD-10-PCS; 2025-01-09)
PROC: 0WUF0JZ Supplement Abdominal Wall with Synthetic Substitute, Open Approach (ICD-10-PCS; 2025-01-09)
PROC: 0HBV0ZZ Excision of Bilateral Breast, Open Approach (ICD-10-PCS; 2025-01-09)
PROC: 0HPU0JZ Removal of Synthetic Substitute from Left Breast, Open Approach (ICD-10-PCS; 2025-01-09)
PROC: 07B80ZX Excision of Right Internal Mammary Lymphatic, Open Approach, Diagnostic (ICD-10-PCS; 2025-01-09)
DX: N65.0 Deformity of reconstructed breast (principal); D62 Acute posthemorrhagic anemia; J45.20 Mild intermittent asthma, uncomplicated; E03.9 Hypothyroidism, unspecified; G47.00 Insomnia, unspecified; M43.10 Spondylolisthesis, site unspecified; Z85.3 Personal history of malignant neoplasm of breast; Z98.82 Breast implant status; Z90.13 Acquired absence of bilateral breasts and nipples; Z86.16 Personal history of COVID-19; Z87.891 Personal history of nicotine dependence; Z80.3 Family history of malignant neoplasm of breast
CPT/HCPCS: 88304; 88305; 80048; 80053; 82040; 82962; 83036; 83735; 84100; 85014; 85018; 85025; 85027; 85610; 85730; 86850; 86900; 86901; 88341; 88360; 97162; A4648; C1713; C1729; C1781; P9047

== ENCOUNTER → 2025-02-01 13:17 | Outpatient (REF) | payer BC, SELFPAY | LOC: PET 13:17 | PROVIDERS: ATTENDING PHYSICIAN Surgery | DX: C50.412 Malignant neoplasm of upper-outer quadrant of left female breast (principal); C50.919 Malignant neoplasm of unspecified site of unspecified female breast | CPT/HCPCS: 78815; A9552 ==

== ENCOUNTER → 2025-02-20 07:27 | Outpatient (REF) | payer BC, SELFPAY | LOC: RAD 07:27 | PROVIDERS: ATTENDING PHYSICIAN Surgery; FAMILY PHYSICIAN Family Medicine; OTHER PHYSICIAN Internal Medicine Hematology & Oncology | DX: E04.1 Nontoxic single thyroid nodule (principal); C50.412 Malignant neoplasm of upper-outer quadrant of left female breast | CPT/HCPCS: 76536 ==

== ENCOUNTER → 2025-02-28 14:09 | Outpatient (REF) | payer BC, SELFPAY ==
[2025-02-28 14:25] VITALS: BP 102/72; BP_SYST 73
== END ==
LOC: RADI 14:09
PROVIDERS: ATTENDING PHYSICIAN Internal Medicine Hematology & Oncology; FAMILY PHYSICIAN Family Medicine
DX: E04.1 Nontoxic single thyroid nodule (principal); Z85.3 Personal history of malignant neoplasm of breast
CPT/HCPCS: 10005; 88173

== ENCOUNTER → 2025-03-26 13:59 | Outpatient (REF) | payer BC, SELFPAY ==
[2025-03-26 15:51] LABS: TSH 2.61 uIU/ml (0.47-4.68)
== END ==
LOC: REG 13:59
PROVIDERS: ATTENDING PHYSICIAN Family Medicine
DX: E03.9 Hypothyroidism, unspecified (principal)
CPT/HCPCS: 36415; 84439; 84443

== ENCOUNTER → 2025-05-10 09:07 | Outpatient (REF) | payer BC, SELFPAY ==
[2025-05-10 13:13] LABS: TSH 0.57 uIU/ml (0.47-4.68)
== END ==
LOC: HWLAB 09:07
PROVIDERS: ATTENDING PHYSICIAN Family Medicine
DX: E03.9 Hypothyroidism, unspecified (principal)
CPT/HCPCS: 36415; 84443